=== PATIENT | female | born 2000 | race Caucasian/White ===

== ENCOUNTER 2024-11-24 15:54 | Emergency (ER) | payer MEDICAID, SELFPAY ==
[2024-11-24 16:14] VITALS: BP 128/91; PULSE 95; RESP 19; TEMP 36.9; O2SAT 94; BMI 38.2
--- NOTE | 2024-11-24 16:17 | XR_ITS ---
Examination: PA lateral chest 2 views Technique: Upright PA lateral chest 2 views November 24, 2024, 1631 hrs. Indications: Coughing fever shortness of breath chest pain today. Findings: Normal heart size. Lungs are clear. Osseous structures are intact. Impression: No active disease
[2024-11-24] MEDS: DEXAMETHASONE SOD PHOS INJ 10 MG/ML VIAL PO (16:48)
--- NOTE | 2024-11-24 16:59 | PC.NURSE ---
Patient took PO decadron and had episode emesis within one minute of medication. Provider made aware, new order to IM decadron and ODT ZOfran.
[2024-11-24] MEDS: ONDANSETRON ODT 4 MG TABRAP PO (17:17)
[2024-11-24] MEDS: DEXAMETHASONE SOD PHOS INJ 10 MG/ML VIAL IM (17:17)
--- NOTE | 2024-11-24 17:47 | PD.EDSOB ---
ED SOB =RME/HPI General Chief Complaint: Shortness of Breath/Dyspnea Stated Complaint: SOB X 2 days, worse today Time Seen by Provider: 11/24/24 15:57 Arrival date/time: 11/24/24 15:54 24-year-old female with no known medical history presents to the emergency room with a chief complaint of shortness of breath x 2 days Related Data Allergies Allergy/AdvReac Type Severity Reaction Status Date / Time No Known Allergies Allergy Verified 11/24/24 15:57 Course Orders Category Date Time Status Bedside COVID-19 Antigen Test NOW Care 11/24/24 16:17 Active Bedside Influenza A&B Antigen Test NOW Care 11/24/24 16:17 Active XR chest 2V Stat Exams 11/24/24 16:17 Completed Albuterol/Ipratr Rt Sadaf [Duoneb Rt Sadaf] Med 11/24/24 16:17 Discontinued 3 ml INH X1 ONE Dexamethasone Inj [Decadron Inj] Med 11/24/24 16:54 Discontinued 10 mg IM X1 ONE Dexamethasone Inj [Decadron Inj] Med 11/24/24 16:17 Discontinued 10 mg PO X1 ONE Ondansetron Odt [Zofran Odt] Med 11/24/24 16:54 Discontinued 4 mg PO X1 ONE Vital Signs Vital signs: Vital Signs Temperature 98.4 F 11/24/24 16:14 Pulse Rate 95 11/24/24 16:14 Respiratory Rate 19 11/24/24 16:14 Blood Pressure 128/91 H 11/24/24 16:14 Pulse Oximetry (%) 94 L 11/24/24 16:14 Oxygen Delivery Method Room Air 11/24/24 16:14 Shortness of Breath / Dyspnea Medications / Prescriptions Medication administrations:: Medication Administration History Discontinued Medications Albuterol/Ipratropium (Albuterol/Ipratropium (Duoneb) Rt Sadaf 3 Ml Nebu) 3 ml INH X1 ONE Stop: 11/24/24 16:18 Dexamethasone Sodium Phosphate (Dexamethasone Sod Phos Inj 10 Mg/Ml Vial) 10 mg PO X1 ONE Stop: 11/24/24 16:18 Last Admin: 11/24/24 16:48 Dose: 10 mg Documented By: Dexamethasone Sodium Phosphate (Dexamethasone Sod Phos Inj 10 Mg/Ml Vial) 10 mg IM X1 ONE Stop: 11/24/24 16:55 Last Admin: 11/24/24 17:17 Dose: 10 mg Documented By: Ondansetron HCl (Ondansetron Odt 4 Mg Tabrap) 4 mg PO X1 ONE; Protocol Stop: 11/24/24 16:55 Last Admin: 11/24/24 17:17 Dose: 4 mg Documented By: Discharge Plan Prescriptions/Referrals Referrals: Christopher Montilla MD [Primary Care Provider, Family Practice] - In 1 week Patient/Caregiver Discharge Instructions Print Language: Georgian
--- NOTE | 2024-11-24 17:55 | PD.EDRME ---
Rapid Medical Screening Exam RME Arrival date/time: 11/24/24 15:54 24-year-old female with no known medical history presents to the emergency room with a chief complaint of shortness of breath x 2 days I have greeted and performed a focused initial assessment of this patient. A comprehensive ED assessment and evaluation of the patient, analysis of all test results, and completion of the medical decision making process will be conducted by additional ED providers. Chief Complaint: Shortness of Breath/Dyspnea Time Seen by Provider: 11/24/24 15:57 Vital signs: Vital Signs Temperature 98.4 F 11/24/24 16:14 Pulse Rate 95 11/24/24 16:14 Respiratory Rate 19 11/24/24 16:14 Blood Pressure 128/91 H 11/24/24 16:14 Pulse Oximetry (%) 94 L 11/24/24 16:14 Oxygen Delivery Method Room Air 11/24/24 16:14 Vital signs reviewed by provider: Yes
[2024-11-24 17:59] VITALS: PULSE 90; RESP 20; O2SAT 99
[2024-11-24] MEDS: ALBUTEROL/IPRATROPIUM (Duoneb) RT SOL 3 ML NEBU INH (17:59)
== END 2024-11-24 19:29 | disposition left against medical advice (07) ==
PROVIDERS: Emergency Provider Emergency Medicine; PCP Family Medicine
DX: R06.02 Shortness of breath (principal); R05.9 Cough, unspecified; R50.9 Fever, unspecified; R07.9 Chest pain, unspecified; Z53.29 Procedure and treatment not carried out because of patient's decision for other reasons
CPT/HCPCS: 71046; 87400; 87811; 94640; 96372; 99283; A9270; J1100; Q0162